=== PATIENT | female | born 1975 | race Caucasian/White ===

== ENCOUNTER 2016-10-21 11:53 | Emergency (ER) | payer BC ==
[~2016-10-21] VITALS: Ht 165.1 cm; Wt 108.0 kg
[~2016-10-21 11:53] MED LIST: ALBU17I INH; BUPR-175 PO; CELE20TA PO; FIORIC PO; HYDR-3533 PO; TOPA15CA PO; ZOFR4TAB3 SL
[2016-10-21 11:56] VITALS: BP 167/90; PULSE 86; RESP 20; TEMP 98; O2SAT 100
--- NOTE | 2016-10-21 12:41 | PD ---
HPI Chief Complaint: Headache Time Seen by Provider: 12:38 Travel History International Travel<30 days: No Contact w/Intl Traveler<30days: No Traveled to known affect area: No History of Present Illness HPI Patient comes in complaining of headache that began this morning. Patient reports has a history of headaches, but this feels somewhat different than her normal headaches. Patient had her blood pressure checked at work found to be elevated, she then went to an urgent care where she was then directed to the emergency department further treatment and evaluation. Patient states that she' s been out of her blood pressure medicine for almost a month. Patient denies any chest pain, shortness breath, numbness, vomiting, numbness or tingling anywhere, change in vision, abdominal pain, back pain, fevers, or change in urination. Patient reports associated dizziness with this. Patient states she normally takes Tylenol or ibuprofen for her headaches, but has not took anything for this today. Patient reports her blood pressure medicine is hydrochlorothiazide but she is uncertain of the dose. PFSH Past Medical History Anxiety: Yes Depression: Yes Hypertension: Yes Respiratory: Yes (HX OF BRONCHITIS) Past Surgical History Section: Yes Social History Alcohol Use: No Tobacco Use: Yes Substance Use: No Allergies-Medications (Allergen,Severity, Reaction): Coded Allergies: No Known Allergies (Verified , 06/20/14) Reported Meds & Prescriptions Reported Meds & Active Scripts Active Hydrochlorothiazide 12.5 Mg Cap 12.5 Mg PO DAILY Bactrim DS (Sulfamethoxazole-Trimethoprim) 800-160 Mg Tab 1 Tab PO BID Zofran ODT (Ondansetron HCl) 4 Mg Tab 4 Mg SL Q6H PRN FOR NAUSEA/VOMITING Fioricet Tab (Acetaminophen/Butalbital/Caffeine) 1 Tab 1 Tab PO Q6 PRN Proventil Mdi (Albuterol Sulfate) 17 Gm Aero 1 Puff INH Q4 PRN Reported Lortab 5 mg/325 mg (Hydrocodone/Acetaminophen 5 mg/325 mg) 1 Tab 1 Tab PO Q6H PRN [id number] Mg 15 Mg Cap 0 PO DAILY UNKNOWN DOSE Celexa (Citalopram Hydrobromide) 20 Mg Tab 20 Mg PO DAILY Wellbutrin (Bupropion HCl) 75 Mg Tab 75 Mg PO DAILY Review of Systems Except as stated in HPI: all other systems reviewed are Neg Physical Exam Narrative GENERAL: Well-developed, overly nourished, in no acute distress, and non-ill appearing. SKIN: Warm and dry. HEAD: Atraumatic. Normocephalic. EYES: Pupils equal and round. EOMI. No scleral icterus. No injection or drainage. ENT: No nasal bleeding or discharge. Mucous membranes pink and moist. NECK: Trachea midline. No JVD. Supple. No nuclear rigidity. CARDIOVASCULAR: Regular rate and rhythm. No murmur appreciated. RESPIRATORY: No accessory muscle use. No respiratory distress. Clear to auscultation. Breath sounds equal bilaterally. MUSCULOSKELETAL: No obvious deformities. No clubbing. No cyanosis. No edema. Full range of motion. NEUROLOGICAL: Awake and alert. No obvious cranial nerve deficits. Motor grossly within normal limits. Normal speech. PSYCHIATRIC: Appropriate mood and affect; insight and judgment normal. Data Data Last Documented VS Vital Signs Date Time Temp Pulse Resp B/P Pulse Ox O2 Delivery O2 Flow Rate FiO2 10/21/16 15:51 79 17 125/80 100 10/21/16 11:56 98.0 Room Air Orders Electrocardiogram (10/21/16 12:34) Basic Metabolic Panel (Bmp) (10/21/16 12:34) Complete Blood Count With Diff (10/21/16 12:34) Magnesium (Mg) (10/21/16 12:34) Ckmb (Isoenzyme) Profile (10/21/16 12:34) Troponin I (10/21/16 12:34) Act Partial Throm Time (Ptt) (10/21/16 12:34) Prothrombin Time / Inr (Pt) (10/21/16 12:34) Urinalysis - C+S If Indicated (10/21/16 12:34) Chest, Single Ap (10/21/16 12:34) Ct Brain W/O Iv Contrast(Rout) (10/21/16 12:34) Ecg Monitoring (10/21/16 12:34) Iv Access Insert/Monitor (10/21/16 12:34) Oximetry (10/21/16 12:34) Ondansetron Inj (Zofran Inj) (10/21/16 12:45) Sodium Chloride 0.9% Flush (Ns Flush) (10/21/16 12:45) Acetaminophen (Tylenol) (10/21/16 12:45) Urine Culture (10/21/16 12:30) Sulfamet-Trimeth Ds 800-160 Mg (Bactrim (10/21/16 14:00) Ketorolac Inj (Toradol Inj) (10/21/16 14:15) Ondansetron Inj (Zofran Inj) (10/21/16 14:15) Diphenhydramine Inj (Benadryl Inj) (10/21/16 14:15) Labs Laboratory Tests Test 10/21/16 10/21/16 12:30 12:35 Urine Color YELLOW Urine Turbidity HAZY Urine pH 7.5 Urine Specific [place] 1.015 Urine Protein 30 mg/dL Urine Glucose (UA) NEG mg/dL Urine Ketones NEG mg/dL Urine Occult Blood MOD Urine Nitrite NEG Urine Bilirubin NEG Urine Urobilinogen LESS THAN 2.0 MG/DL Urine Leukocyte Esterase SMALL Urine RBC 3 /hpf Urine WBC 12 /hpf Urine Squamous Epithelial 26 /hpf Cells Urine Transitional Epithelial <1 /hpf Cells Urine Bacteria RARE /hpf Urine Mucus FEW /lpf Microscopic Urinalysis Comment CULTURE INDICATED White Blood Count 8.1 TH/MM3 Red Blood Count 4.23 MIL/MM3 Hemoglobin 12.2 GM/DL Hematocrit 36.2 % Mean Corpuscular Volume 85.5 FL Mean Corpuscular Hemoglobin 28.7 PG Mean Corpuscular Hemoglobin 33.6 % Concent Red Cell Distribution Width 14.3 % Platelet Count 318 TH/MM3 Mean Platelet Volume 9.6 FL Neutrophils (%) (Auto) 57.5 % Lymphocytes (%) (Auto) 33.1 % Monocytes (%) (Auto) 5.8 % Eosinophils (%) (Auto) 3.0 % Basophils (%) (Auto) 0.6 % Neutrophils # (Auto) 4.7 TH/MM3 Lymphocytes # (Auto) 2.7 TH/MM3 Monocytes # (Auto) 0.5 TH/MM3 Eosinophils # (Auto) 0.2 TH/MM3 Basophils # (Auto) 0.0 TH/MM3 CBC Comment DIFF FINAL Differential Comment Prothrombin Time 10.0 SEC Prothromb Time International 0.9 RATIO Ratio Activated Partial 25.6 SEC Thromboplast Time Sodium Level 142 MEQ/L Potassium Level 4.1 MEQ/L Chloride Level 109 MEQ/L Carbon Dioxide Level 26.9 MEQ/L Anion Gap 6 MEQ/L Blood Urea Nitrogen 12 MG/DL Creatinine 0.91 MG/DL Estimat Glomerular Filtration 68 ML/MIN Rate Random Glucose 83 MG/DL Calcium Level 8.8 MG/DL Magnesium Level 2.2 MG/DL Total Creatine Kinase 68 U/L Troponin I LESS THAN 0.02 NG/ML MDM Medical Decision Making Medical Screen Exam Complete: Yes Emergency Medical Condition: Yes Interpretation(s) Patient refused EKG here in the emergency department as she states she had one previously at the urgent care today that she brought with her. EKG was reviewed by Dr. Tolbert, showed normal sinus rhythm and no STEMI. Differential Diagnosis Headache, hypertension, electrolyte abnormality, intracranial hemorrhage, tumor , other Narrative Course The patient has a prior history of hypertension and headaches and admits to noncompliance with their antihypertensive medications. The patient denied changes in vision, nausea, vomiting, weakness or loss of sensation. The patient denied and chest, back or abdominal pain. The patient also denied any shortness of breath, dyspnea on exertion, orthopnea or PND. The patient denies any edema to extremities. Due to patients subjective complaint and presentation, a head CT was performed which was normal and without evidence of blood or mass. The patient looks great, feels better and is in no significant objective discomfort currently. The patient is in no distress and the patients neurological exam is normal, neck is supple and without meningismus. The headache is not consistent with meningitis or infection, nor does it appear consistent with intracranial bleed (SAH etc.), carotid dissection, nor mass by history, examination and evaluation. There is very little clinical evidence to suggest missed hemorrhage on CT and/or sentinel bleed thus an invasive procedure such as a lumbar puncture was not performed. Medication and instructions to rest in a cool dark quite place were discussed with the patient. Also, outpatient follow up was instructed. The patient was instructed to return as needed or if symptoms changed or worsened, fever developed or inability to tolerate fluids. I discussed with the patient the importance of continuing daily antihypertensive and to not skip doses or stop medications suddenly without instruction by their primary care physician. The patient was instructed to follow up and potential adjustment of blood pressure medications. Return warnings were given to the patient and the patient agreed with plan of care. Patient in no obvious distress upon re-evaluation. All pertinent laboratory/ Radiology result(s) discussed with patient. Discussed patient with Dr. Tolbert, who saw and evaluated the patient is in agreement with plan of care and disposition. Patient was offered LP to definitively rule out any bleed , but is refusing at this time. Any questions/concerns in reference to patient diagnosis/condition discussed and clarified prior to patient's discharge. Reinforced sheer importance of close follow up with patient's primary physician or primary care clinic. Instructed patient to return to ED immediately, if symptoms return/worsen. Pt showed understanding of above instructions. Further instructions and recommendations were detailed in discharge paperwork. Pt ambulated without difficulty out of ED at discharge. Diagnosis Primary Impression: Headache Qualified Code: R51 - Nonintractable headache, unspecified chronicity pattern , unspecified headache type Additional Impressions: UTI (urinary tract infection) Qualified Code: N39.0 - Urinary tract infection without hematuria, site unspecified Medication refill Patient Instructions: General Headache (ED), General Instructions, Hypertension (ED), Medication Refill, ED, Urinary Tract Infection in Women (ED) Additional Instructions: Follow-up with your primary care physician this week for reevaluation. Take all medication as prescribed. Return to the emergency department if symptoms get worse. Med/Other Pt SpecificInfo: Prescription(s) given Scripts Hydrochlorothiazide 12.5 Mg Cap12.5 Mg PO DAILY #14 CAP Ref 0 Prov:Stephanie Tolbert MD 10/21/16 Sulfamethoxazole-Trimethoprim (Bactrim DS)800-160 Mg Tab1 Tab PO BID #14 TAB Ref 0 Prov:Stephanie Tolbert MD 10/21/16 Disposition: 01 DISCHARGE HOME Condition: Stable Patrick Nieto Oct 21, 2016 12:41
[2016-10-21] MEDS ORDERED: ONDANSETRON HCL 4 MG/2 ML VIAL IVP ONE ×2 (12:45→14:15)
[2016-10-21] MEDS ORDERED: SODIUM CHLORIDE 0.9% FLUSH 5 ML FLUSH IVF PRN (12:45)
[2016-10-21] MEDS ORDERED: ACETAMINOPHEN 500 MG CPLT PO ONE (12:45)
[2016-10-21 13:00] LABS: AUTOMATED NEUTROPHIL # 4.7 TH/MM3 (1.8-7.7); BASOPHIL % 0.6 % (0.0-2.0); EOSINOPHIL # 0.2 TH/MM3 (0-0.4); HEMATOCRIT 36.2 % (35.0-46.0); HEMO FLAGS DIFF FINAL; LYMPH % 33.1 % (9.0-44.0); LYMPHOCYTE # 2.7 TH/MM3 (1.0-4.8); MEAN CELL VOLUME 85.5 FL (80.0-100.0); MEAN CORPUSCULAR HEMOGLOBIN 28.7 PG (27.0-34.0); MEAN CORPUSCULAR HGB CONC 33.6 % (32.0-36.0); MONO % 5.8 % (0.0-8.0); NEUT % 57.5 % (16.0-70.0); PLATELET COUNT 318 TH/MM3 (150-450); RED BLOOD COUNT 4.23 MIL/MM3 (4.00-5.30); RED CELL DISTRIBUTION WIDTH 14.3 % (11.6-17.2); WHITE BLOOD COUNT 8.1 TH/MM3 (4.0-11.0)
[2016-10-21 13:11] LABS: BACTERIA, URINE RARE /hpf; BLOOD, URINE MOD (NEG); COMMENT (UR) CULTURE INDICATED; CULTURE IF INDICATED CULTURE INDICATED; GLUCOSE,URINE NEG (NEG); KETONE, URINE NEG (NEG); MUCUS URINE FEW /lpf (OCC); NITRITE,URINE NEG (NEG); PH, URINE 7.5 (5.0-8.5); SQUAMOUS EPITHELIAL CELL URINE 26 /hpf (0-5); TRANSITIONAL EPI CELLS, URINE <1 /hpf; URINE COLOR YELLOW (YELLW/STRAW)
[2016-10-21 13:11] LABS: APTT (PATIENT) 25.6 SEC (24.3-30.1); INTERNATIONAL NORMALIZED RATIO 0.9 RATIO
[2016-10-21 13:20] LABS: ANION GAP 6 MEQ/L (5-15); BICARBONATE 26.9 MEQ/L (21.0-32.0); BLOOD UREA NITROGEN 12 MG/DL (7-18); CHLORIDE 109 MEQ/L (98-107); GLOMERULAR FILTRATION RATE 68 ML/MIN (>89); MAGNESIUM 2.2 MG/DL (1.5-2.5); POTASSIUM 4.1 MEQ/L (3.5-5.1); SODIUM (NA) 142 MEQ/L (136-145)
[2016-10-21 13:28] LABS: CREATINE KINASE 68 U/L (26-192)
--- NOTE | 2016-10-21 13:55 | RADRPT ---
EXAM DATE/TIME: 10/21/2016 13:33 [facility] COMPARISON: No previous studies available for comparison. INDICATIONS : Patient complains of severe headache, and dizziness RADIATION DOSE: 56.35 CTDIvol (mGy) MEDICAL HISTORY : Hypertension. SURGICAL HISTORY : None. ENCOUNTER: Initial ACUITY: 1 day PAIN SCALE: 7/10 LOCATION: cranial TECHNIQUE: Multiple contiguous axial images were obtained of the head. Using automated exposure control and adj ustment of the mA and/or kV according to patient size, radiation dose was kept as low as reasonably a chievable to obtain optimal diagnostic quality images. FINDINGS: CEREBRUM: The ventricles are normal for age. No evidence of midline shift, mass lesion, hemorrhage or acute in farction. No extra-axial fluid collections are seen. POSTERIOR FOSSA: The cerebellum and brainstem are intact. The 4th ventricle is midline. The cerebellopontine angle i s unremarkable. EXTRACRANIAL: The visualized portion of the orbits is intact. SKULL: The calvaria is intact. No evidence of skull fracture. CONCLUSION: No acute disease. Kamar Thomas MD FACR on October 21, 2016 at 13:54 Board Certified Radiologist. This report was verified electronically.
--- NOTE | 2016-10-21 13:56 | RADRPT ---
EXAM DATE/TIME: 10/21/2016 13:34 [facility] COMPARISON: No previous studies available for comparison. INDICATIONS : Vertigo, short of breath today, headache MEDICAL HISTORY : None. SURGICAL HISTORY : None. ENCOUNTER: Initial ACUITY: 1 day PAIN SCORE: 0/10 LOCATION: Bilateral chest FINDINGS: The lungs are clear. The heart is minimally enlarged. The pulmonary vascularity is normal. There is n o evidence for infiltrate or failure. The portion of the bony skeleton visualized is unremarkable. CONCLUSION: Compensated cardiomegaly otherwise negative. Kamar Thomas MD FACR on October 21, 2016 at 13:54 Board Certified Radiologist. This report was verified electronically.
[2016-10-21] MEDS ORDERED: SULFAMETHOXAZOLE-TRIMETHOPRIM DS 800-160 MG TAB PO ONE (14:00)
[2016-10-21] MEDS ORDERED: diphenhydrAMINE HCL 50 MG/ML VIAL IVP ONE (14:15)
[2016-10-21] MEDS ORDERED: KETOROLAC TROMETHAMINE 30 MG/ML (IVP) VIAL IVP ONE (14:15)
[2016-10-21] MEDS ORDERED: HYDR12.57 PO (14:18)
[2016-10-21] MEDS ORDERED: BACT800T5 PO (14:18)
--- NOTE | 2016-10-21 14:32 | PD ---
Physical Exam Date Seen by Provider: Oct 21, 2016 Time Seen by Provider: 13:30 Narrative I, Dr. Tolbert, have reviewed the advance practice practitioner's documentation and am in agreement, met with the patient face to face, made the diagnosis, and the medical decision making was done by me. *My assessment and Findings: Patient seen and evaluated with PA, please see PA for further information. Patient has history of chronic headaches, here with a worsening in headaches. No meningeal signs, fevers, photophobia, or other symptoms. Vital signs show fairly elevated blood pressures. She was sent in from urgent care for further evaluation. EKG from urgent care shows NSR, no ST elevation or depression, and no arrhythmias. No significant T-wave inversions. Laboratory Tests Test 10/21/16 10/21/16 12:30 12:35 Urine Turbidity HAZY (CLEAR) Urine Protein 30 mg/dL (NEG-TRACE) Urine Occult Blood MOD (NEG) Urine Leukocyte Esterase SMALL (NEG) Urine WBC 12 /hpf (0-5) Urine Bacteria RARE /hpf (NONE) Urine Mucus FEW /lpf (OCC) Chloride Level 109 MEQ/L (98-107) Estimat Glomerular Filtration 68 ML/MIN (>89) Rate Troponin I LESS THAN 0.02 NG/ML (0.02-0.05) Last [address] 10/21/16 1234 Signed Impressions: Service Date/Time: Friday, October 21, 2016 13:33 - CONCLUSION: No acute disease. Kamar Thomas MD FACR Chest X-Ray 10/21/16 1234 Signed Impressions: Service Date/Time: Friday, October 21, 2016 13:34 - CONCLUSION: Compensated cardiomegaly otherwise negative. Kamar Thomas MD FACR Lab work shows UTI but is otherwise not significant for significant metabolic issues, dehydration, or obvious signs of sepsis. CAT scan was negative. Patient was given symptomatic relief for headache. At this point, I do not see signs of end organ processes. She has no meningeal signs and I do not suspect meningitis. We have talked her regarding CAT scan findings and have offered to do a lumbar puncture as well for further evaluation of headache. Patient is declining at this point and I suspect that the symptoms of headache may be secondary to UTI rather than other acute processes. However, and acute intracranial bleed or underlying infection cannot be ruled out without a LP. Patient states understanding. At this point, my plan would be to release her with antibiotics for UTI and symptomatic relief for her headaches. In addition , patient's blood pressure is elevated and she will be restarted on blood pressure medications for chronic hypertension. Return for any worsening in symptoms as needed. Data Data Last Documented VS Vital Signs Date Time Temp Pulse Resp B/P Pulse Ox O2 Delivery O2 Flow Rate FiO2 10/21/16 11:56 98.0 86 20 167/90 100 Room Air Orders Electrocardiogram (10/21/16 12:34) Basic Metabolic Panel (Bmp) (10/21/16 12:34) Complete Blood Count With Diff (10/21/16 12:34) Magnesium (Mg) (10/21/16 12:34) Ckmb (Isoenzyme) Profile (10/21/16 12:34) Troponin I (10/21/16 12:34) Act Partial Throm Time (Ptt) (10/21/16 12:34) Prothrombin Time / Inr (Pt) (10/21/16 12:34) Urinalysis - C+S If Indicated (10/21/16 12:34) Chest, Single Ap (10/21/16 12:34) Ct Brain W/O Iv Contrast(Rout) (10/21/16 12:34) Ecg Monitoring (10/21/16 12:34) Iv Access Insert/Monitor (10/21/16 12:34) Oximetry (10/21/16 12:34) Ondansetron Inj (Zofran Inj) (10/21/16 12:45) Sodium Chloride 0.9% Flush (Ns Flush) (10/21/16 12:45) Acetaminophen (Tylenol) (10/21/16 12:45) Urine Culture (10/21/16 12:30) Sulfamet-Trimeth Ds 800-160 Mg (Bactrim (10/21/16 14:00) Ketorolac Inj (Toradol Inj) (10/21/16 14:15) Ondansetron Inj (Zofran Inj) (10/21/16 14:15) Diphenhydramine Inj (Benadryl Inj) (10/21/16 14:15) Labs Laboratory Tests Test 10/21/16 10/21/16 12:30 12:35 Urine Color YELLOW Urine Turbidity HAZY Urine pH 7.5 Urine Specific [place] 1.015 Urine Protein 30 mg/dL Urine Glucose (UA) NEG mg/dL Urine Ketones NEG mg/dL Urine Occult Blood MOD Urine Nitrite NEG Urine Bilirubin NEG Urine Urobilinogen LESS THAN 2.0 MG/DL Urine Leukocyte Esterase SMALL Urine RBC 3 /hpf Urine WBC 12 /hpf Urine Squamous Epithelial 26 /hpf Cells Urine Transitional Epithelial <1 /hpf Cells Urine Bacteria RARE /hpf Urine Mucus FEW /lpf Microscopic Urinalysis Comment CULTURE INDICATED White Blood Count 8.1 TH/MM3 Red Blood Count 4.23 MIL/MM3 Hemoglobin 12.2 GM/DL Hematocrit 36.2 % Mean Corpuscular Volume 85.5 FL Mean Corpuscular Hemoglobin 28.7 PG Mean Corpuscular Hemoglobin 33.6 % Concent Red Cell Distribution Width 14.3 % Platelet Count 318 TH/MM3 Mean Platelet Volume 9.6 FL Neutrophils (%) (Auto) 57.5 % Lymphocytes (%) (Auto) 33.1 % Monocytes (%) (Auto) 5.8 % Eosinophils (%) (Auto) 3.0 % Basophils (%) (Auto) 0.6 % Neutrophils # (Auto) 4.7 TH/MM3 Lymphocytes # (Auto) 2.7 TH/MM3 Monocytes # (Auto) 0.5 TH/MM3 Eosinophils # (Auto) 0.2 TH/MM3 Basophils # (Auto) 0.0 TH/MM3 CBC Comment DIFF FINAL Differential Comment Prothrombin Time 10.0 SEC Prothromb Time International 0.9 RATIO Ratio Activated Partial 25.6 SEC Thromboplast Time Sodium Level 142 MEQ/L Potassium Level 4.1 MEQ/L Chloride Level 109 MEQ/L Carbon Dioxide Level 26.9 MEQ/L Anion Gap 6 MEQ/L Blood Urea Nitrogen 12 MG/DL Creatinine 0.91 MG/DL Estimat Glomerular Filtration 68 ML/MIN Rate Random Glucose 83 MG/DL Calcium Level 8.8 MG/DL Magnesium Level 2.2 MG/DL Total Creatine Kinase 68 U/L Troponin I LESS THAN 0.02 NG/ML [facility] Medical Record Reviewed: Yes Supervised Visit with CLARY: Yes Diagnosis Primary Impression: Headache Qualified Code: R51 - Nonintractable headache, unspecified chronicity pattern , unspecified headache type Additional Impressions: Medication refill UTI (urinary tract infection) Qualified Code: N39.0 - Urinary tract infection without hematuria, site unspecified Patient Instructions: General Instructions, Medication Refill, ED, Urinary Tract Infection in Women (ED), Hypertension (ED), General Headache (ED) Additional Instruction: Follow-up with your primary care physician this week for reevaluation. Take all medication as prescribed. Return to the emergency department if symptoms get worse. Scripts Hydrochlorothiazide 12.5 Mg Cap12.5 Mg PO DAILY #14 CAP Ref 0 Prov:Stephanie Tolbert MD 10/21/16 Sulfamethoxazole-Trimethoprim (Bactrim DS)800-160 Mg Tab1 Tab PO BID #14 TAB Ref 0 Prov:Stephanie Tolbert MD 10/21/16 Disposition: 01 DISCHARGE HOME Condition: Stable Stephanie Tolbert MD Oct 21, 2016 14:32
[2016-10-21 15:51] VITALS: BP 125/80
== END 2016-10-21 16:02 | disposition home or self-care (01) ==
LOC: NEPC 11:53
DX: N39.0 Urinary tract infection, site not specified (principal); R51 Headache; I10 Essential (primary) hypertension; F41.8 Other specified anxiety disorders; Z91.14 Patient's other noncompliance with medication regimen; B96.89 Other specified bacterial agents as the cause of diseases classified elsewhere
CPT/HCPCS: 70450; 71010; 80048; 81001; 82550; 83735; 84484; 85025; 85610; 85730; 87086; 96374; 96375; 96376; 99284; J1200; J1885; J2405